=== PATIENT | male | born 1955 | race Caucasian/White ===

== ENCOUNTER 2024-12-21 05:52 | Emergency (ER) | payer MEDICARE, SELFPAY ==
[2024-12-21] VITALS (9 sets, daily range): BP systolic 121–208; BP diastolic 72–125; PULSE 85–144; RESP 18–26; TEMP 36.4–37.1; O2SAT 96–100; BMI 35.2
--- NOTE | 2024-12-21 | ECG_ITS ---
Test Reason : HYPERTENSION Blood Pressure : */* mmHG Vent. Rate : 140 BPM Atrial Rate : * BPM P-R Int : * ms QRS Dur : 146 ms QT Int : 356 ms P-R-T Axes : * -47 10 degrees QTcB Int : 543 ms Wide QRS tachycardia most liekly SVT/Flutter with aberrancy Right bundle branch block Left anterior fascicular block Bifascicular block Possible Inferior infarct , age undetermined Abnormal ECG No previous ECGs available Referred By: Generic ED Physician Electronically Signed By: JUSTIN HAYDEN MD
--- NOTE | ~2024-12-21 | CT_ITS ---
CLINICAL HISTORY: acute onset dizzines CT angiography head and neck with contrast. 3D Postprocessing. Comparison: None provided Findings: There are bilateral calcific atherosclerotic changes of the carotid bulbs without significant stenosis on the right and with severe stenosis at the origin of the left internal carotid artery. [id number] calcific atherosclerotic changes at the cavernous carotid arteries without significant stenosis. Intracranial arteries are patent. No aneurysm, dissection, hemodynamically significant stenoses, or occlusion. No abnormal intracranial enhancement. The visualized thyroid gland is unremarkable. No cervical mass or fluid collection. Lung apices clear. There is multilevel degenerative disc disease and uncinate joint arthropathy with significant multilevel bilateral neural foraminal narrowing. IMPRESSION: 1. Severe calcific atherosclerotic changes left carotid bulb with severe stenosis at the origin of the left internal carotid artery. Otherwise patent arterial system in the head and neck. 2. Severe multilevel degenerative disc disease with bilateral neural foraminal narrowing at multiple levels. This document has been electronically signed by: Riki Yeh MD on 12/21/2024 07:29:53
--- NOTE | ~2024-12-21 | MR_ITS ---
EXAMINATION: MR BRAIN WITHOUT CONTRAST CLINICAL INFORMATION: Acute onset dizziness. Difficulty walking. COMPARISON: None available. TECHNIQUE: MRI of the brain was obtained using routine sequences without contrast. FINDINGS: No restricted diffusion. No acute intracranial hemorrhage, mass effect, midline shift, hydrocephalus or herniation. Bilateral multifocal patchy and punctate deep periventricular white matter hyperintense T2 FLAIR signal involving antrum semiovale and adams radiata. Posterior cranial fossa contents demonstrated no acute hemorrhage or mass effect. Focal susceptibility signal, superior left cerebellum Flow-void signal within the main cerebral vessels is normal. Mild prominence of the extra-axial CSF spaces cerebral sulci and ventricles. Small cavum septum pellucidum, congenital. Sellar/suprasellar region is normal. Craniocervical junction demonstrates normal position of the cerebellar tonsils. MR/MR head/brain wo con IMPRESSION: No acute stroke/nonhemorrhagic ischemia or acute intracranial hemorrhage. White matter T2 FLAIR signal which could be related to small vessel occlusive disease in the correct clinical settings. 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 Electronically signed by: Lakhwinder Mercado MD 12/21/2024 08:36 AM EDT
--- NOTE | ~2024-12-21 | XR_ITS ---
EXAMINATION: XR CHEST CLINICAL INFORMATION: sob COMPARISON: None available. TECHNIQUE: Frontal view of the chest was obtained. FINDINGS: No hyperinflation. No consolidation, pleural effusion or pneumothorax. Cardiomediastinal silhouette size is normal. Osseous structures are intact. Patient's large body habitus. XR/XR chest 1V IMPRESSION: No acute airspace disease. Negative x-ray. Electronically signed by: Lakhwinder Mercado MD 12/21/2024 08:47 AM EDT
--- NOTE | ~2024-12-21 | CT_ITS ---
CLINICAL HISTORY: acute onset dizziness CT head without contrast Comparison: None provided Findings: No intra-axial mass, midline shift, hydrocephalus, or acute hemorrhage. No significant atrophy-like change or white matter disease. The visualized paranasal sinuses and mastoid air cells are normal. The orbits are within normal limits. There is no acute fracture. IMPRESSION: 1. No acute intracranial findings. This document has been electronically signed by: Riki Yeh MD on 12/21/2024 07:23:45
--- NOTE | 2024-12-21 06:18 | ED.GENADULT ---
HPI - General Adult General Chief complaint: General Medical Stated complaint: HTN DIZZINESS Time Seen by Provider: 12/21/24 05:57 Source: patient, EMS and old records reviewed Mode of arrival: EMS Limitations: no limitations History of Present Illness ED Provider: SOURAV ESTEVEZ narrative: 69 yo male with PMH of DM on lantus daily, CAD s/p 2 stents over 10 years ago on aspirin, HTN on amlodipine he notes no recent travel or procedures he felt well up until 5am when he was sitting on the couch. He states he felt very weak, short of breath, he states he felt out of body not himself and had a hard time walking. He cannot quantify what his dizziness is like just keeps saying he is out of his body. He denies any recent illness/new meds/drug use/ETOH use. He denies numbness, weakness, no vomiting, no diarrhea. He takes all of his medications. 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 He notes symptoms started at 5am or 530a. On arrival he was at 140s for HR, rectal temp afebrile. MD complaint: fatigue, malaise, dyspnea Onset (ago): hour(s) (5am today) Radiation: non-radiation Severity: moderate Relieving factors: none Exacerbating factors: movement Associated symptoms: loss of appetite, malaise, shortness of breath and weakness Treatments prior to arrival: none Related Data Allergies Allergy/AdvReac Type Severity Reaction Status Date / Time No Known Allergies Allergy Verified 12/21/24 06:07 Review of Systems Review of Systems: Constitutional : No Fever, No Chills ENT/Mouth : No sore throat, No Rhinorrhea Eyes: No Eye Pain, No Swelling, No Redness Cardiovascular : No Chest Pain, pos SOB Respiratory : No Cough, No Sputum Gastrointestinal : No Nausea, No Vomiting, No Diarrhea, No abdominal Pain Genitourinary : No Dysuria, No Urinary Frequency, No Hematuria, Musculoskeletal : No joint pain, No Myalgias, No Joint Swelling Skin : No Skin Lesions, No rash Neuro : No Weakness, No Numbness, pos Dizziness, no Headache All other systems reviewed and are negative PMFSH Past Medical History Attestation statement: The following information was validated with the patient. Source: old records reviewed Medical History (Updated 12/21/24 @ 14:18 by Krystle Lugo DO) Diabetes CAD (coronary artery disease) HTN (hypertension) Social History Social History (Updated 12/21/24 @ 06:23 by Krystle Lugo DO) Patient Tobacco Use Status: Never used Tobacco Advance Directives: No Advance Directives Information Provided: Yes Do you have a plan to hurt others: No Plan Physical Exam ED Vital Signs: Vital Signs - 24 hr 12/21/24 06:04 12/21/24 06:12 12/21/24 06:24 Temperature 98.7 F 97.9 F 98.7 F Pulse Rate 144 H 142 H Respiratory Rate 22 H 21 H Blood Pressure 159/101 H 159/101 H Pulse Oximetry 97 100 Oxygen Delivery Method Room Air Room Air 12/21/24 08:32 12/21/24 10:09 12/21/24 11:56 Temperature 97.9 F 97.8 F Pulse Rate 92 93 95 Respiratory Rate 26 H 23 H 24 H Blood Pressure 121/79 129/81 123/72 Pulse Oximetry 97 97 97 Oxygen Delivery Method Room Air Room Air Room Air BMI result Body Mass Index 35.2 Appearance: Alert. Oriented X3. No acute distress. Eyes: Pupils equal, round and reactive to light. ENT: Pharynx normal. Neck: Normal inspection. Neck supple. CVS: tachycardic heart rate and rhythm. Pulses normal. Respiratory: No respiratory distress. Breath sounds normal. Abdomen: Soft and nontender. Skin: Skin warm and dry. Normal skin color. Normal skin turgor. Extremities: No lower extremity edema. Neuro: Oriented X 3. No motor deficit. No sensory deficit. CN2-12 intact. no drift NIH Stroke Scale Internal: Initial- Upon Arrival Level of Consciousness: Alert Level of Consciousness Questions: Answers both questions correctly Level of Consciousness Commands: Performs both tasks correctly Best Gaze: Normal Visual: No visual loss Facial Palsy: Normal Motor Arm (Right): No drift Motor Arm (Left): No drift Motor Leg (Right): No drift Motor Leg (Left): No drift Limb Ataxia: Absent Sensory: Normal Best Language: No aphasia Dysarthia: Normal Extinction and Inattention: No abnormality Score: 0 Course Course Course Narrative: 629am converted to NSR and sinus tach - 90s/100s he states he still feels off but cannot quantify if it is dizziness. Will obtain stroke imaging though given his NIH I would not give TNK. 658am patient agreed to try to get up and he had a neg Romberg, he was able to turn and pivot without falling but when we tried to walk he stated he was too short of breath and was almost hyperventilating as well as he felt he was going to pass out. His HR was 112 during the event and his BP sitting was 160/101 he was not orthostatic. I am still going to hold TNK as his symptoms are very vague and not consistent with stroke. I am going to attempt to get a MRI of the brain to assess. repeat calls to MRI after placement of order to confirm time, will call again 734am. SOURAV patient resting no labored breathing, I went into the room and he started to have again loud long breathing - I am going to try oral ativan and repeat his troponin Reevaluation(s) Reevaluation #1: 1218pm feels better, ambulated on his own to bathroom Medications Administered Discontinued Medications Generic Name Dose Route Start Last Admin Trade Name Farrukh PRN Reason Stop Dose Admin Iohexol 75 ml 12/21/24 06:58 12/21/24 06:58 Iohexol 350 Mg/Ml 100 Ml Infus..Btl IV 12/21/24 06:59 75 ml ONCE ONE Administration Lorazepam 0.5 mg 12/21/24 08:52 12/21/24 09:09 Lorazepam 0.5 Mg Tablet PO 12/21/24 08:53 0.5 mg ONCE ONE Administration Medical Decision Making Medical Decision Making [facility] Narrative: 69 yo male with PMH of DM on lantus daily, CAD s/p 2 stents over 10 years ago on aspirin, HTN on amlodipine initially here with HR in 140s the spontaneously down to 90s/100s. He has no focal deficits but I cannot get him up to to walk. He is not reporting the room spinning and is not vomiting - he has no other neuro symptoms. I initially thought his symptoms were due to tachycardia and possible underlying flutter though he broke on his own. I am going to obtain labs, lytes, TSH, and give his vague complaint of out of body and not himself I will get stroke protocol - I think based off his symptoms I will not given TNK as his NIH is 0 and he is not reporting the typical n/v room spinning. He will need repeat labs, repeat troponin, will also get TSH and ddimer given the tachycardia and dyspnea. Differential Diagnosis Differential Diagnoses: The differential diagnosis associated with the presentation includes arrhythmia, lyte abnormality, atypical ACS, VTE low prob, posterior neuro event Admission/Observation Consideration of admission/observation: Escalation of care including admission/observation considered trop not ischemic x 3, EKG unchanged, no chest pain. he continues to perseverate that he felt so sick so quickly he has no stroke he is up to the bathroom at this time I do think he can be discharged home no hypoxia neg ddimer for low prob VTE sig work up in ED - his rate was regular RBBB hard to say if aflutter but he corrected on his own - no chest pain to suggest any other issue could have been SVT that resolved he has not had any events on tele at this time will DC home to PCP with holter monitor Consult Healthcare Provider Management of the patient was discussed with: Welfare Case Worker discussed carotid findings with vasc aspirin/statin follow up outpatient Lab Data MDM Lab Attestation statement: I reviewed the patient's lab results. 12/21/24 06:30 12/21/24 06:30 Labs: Lab Results 12/21/24 12/21/24 12/21/24 Range/Units 06:30 06:31 09:32 WBC 6.0 (4.8-10.8) X10*3/uL RBC 4.04 L (4.60-5.80) X10*6/uL Hgb 12.4 L (14.0-18.0) g/dl Hct 35.6 L (42.0-52.0) % MCV 88.1 (80.0-98.0) fL MCH 30.7 (27.0-33.0) pg MCHC 34.8 (31.0-36.0) g/dl RDW 13.3 (11.0-16.0) % Plt Count 226 (160-400) X10*3/uL MPV 10.1 (9.4-12.4) fL Immature Gran % (Auto) 0.7 H (0.0-0.4) % Neut % (Auto) 53.0 (45-73) % Lymph % (Auto) 34.5 (20-40) % Levy % (Auto) 8.0 (2-11) % Eos % (Auto) 2.8 (0-4) % Baso % (Auto) 1.0 (0-2) % Lymph # (Auto) 2.1 (1.2-4.9) X10*3/uL Levy # (Auto) 0.5 (0.1-1.2) X10*3/uL Eos # (Auto) 0.2 (0.0-0.4) X10*3/uL Baso # (Auto) 0.1 (0.0-0.2) X10*3/uL Abs Immat Gran (auto) 0.04 H (0.00-0.03) X10*3/uL Absolute Neuts (auto) 3.2 (2.0-8.3) x10*3/uL Absolute Nucleated RBC 0.000 (0.0-0.012) X10*3/uL Nucleated RBC % (auto) 0.0 (0.0-0.2) /100WBC D-Dimer High Sensitivty < 150 NG/ML Sodium 139 (135-145) mmol/L Potassium 3.8 (3.3-5.1) mmol/L Chloride 106 (96-108) mmol/L Carbon Dioxide 21 L (22-29) mmol/L Anion Gap 16 (12-20) BUN 18 H (9-16) mg/dL Creatinine 1.28 (0.5-1.4) mg/dL Estim Creat Clear Calc 63.9 Estimated GFR 56 POC Glucose 234 H (60-115) mg/dL Random Glucose 240 H (60-115) mg/dL Calcium 9.1 (8.4-10.2) mg/dL Magnesium 2.1 (1.6-2.6) mg/dL Total Bilirubin 0.4 (0.0-1.0) mg/dL AST 38 H (5-37) U/L ALT 31 (0-40) U/L Alkaline Phosphatase 91 (39-117) U/L Troponin I High Sens < 2.7 8.0 D (<3.5-35.0) ng/L NT-Pro-B Natriuret Pep 28.5 (<300) pg/mL Total Protein 7.1 (6.5-8.0) g/dL Albumin 4.2 (3.5-5.0) g/dL TSH 2.67 (0.32-4.0) uIU/mL Urine Color Urine Appearance Urine pH (5.0-9.0) Ur Specific [place] (1.005-1.025) Urine Protein (Neg-Trace) mg/dL Urine Glucose (UA) (Negative) mg/dL Urine Ketones (Negative) mg/dL Urine Blood (Negative) Urine Nitrite (Negative) Ur Leukocyte Esterase (Negative) Influenza Type A (PCR) NEGATIVE (Negative) Influenza Type B (PCR) NEGATIVE (Negative) RSV RNA Qual (PCR) NEGATIVE (Negative) SARS-CoV-2 RNA (RT-PCR) NEGATIVE (Negative) 12/21/24 Range/Units 12:09 WBC (4.8-10.8) X10*3/uL RBC (4.60-5.80) X10*6/uL Hgb (14.0-18.0) g/dl Hct (42.0-52.0) % MCV (80.0-98.0) fL MCH (27.0-33.0) pg MCHC (31.0-36.0) g/dl RDW (11.0-16.0) % Plt Count (160-400) X10*3/uL MPV (9.4-12.4) fL Immature Gran % (Auto) (0.0-0.4) % Neut % (Auto) (45-73) % Lymph % (Auto) (20-40) % Levy % (Auto) (2-11) % Eos % (Auto) (0-4) % Baso % (Auto) (0-2) % Lymph # (Auto) (1.2-4.9) X10*3/uL Levy # (Auto) (0.1-1.2) X10*3/uL Eos # (Auto) (0.0-0.4) X10*3/uL Baso # (Auto) (0.0-0.2) X10*3/uL Abs Immat Gran (auto) (0.00-0.03) X10*3/uL Absolute Neuts (auto) (2.0-8.3) x10*3/uL Absolute Nucleated RBC (0.0-0.012) X10*3/uL Nucleated RBC % (auto) (0.0-0.2) /100WBC D-Dimer High Sensitivty NG/ML Sodium (135-145) mmol/L Potassium (3.3-5.1) mmol/L Chloride (96-108) mmol/L Carbon Dioxide (22-29) mmol/L Anion Gap (12-20) BUN (9-16) mg/dL Creatinine (0.5-1.4) mg/dL Estim Creat Clear Calc Estimated GFR POC Glucose (60-115) mg/dL Random Glucose (60-115) mg/dL Calcium (8.4-10.2) mg/dL Magnesium (1.6-2.6) mg/dL Total Bilirubin (0.0-1.0) mg/dL AST (5-37) U/L ALT (0-40) U/L Alkaline Phosphatase (39-117) U/L Troponin I High Sens 16.9 D (<3.5-35.0) ng/L NT-Pro-B Natriuret Pep (<300) pg/mL Total Protein (6.5-8.0) g/dL Albumin (3.5-5.0) g/dL TSH (0.32-4.0) uIU/mL Urine Color Yellow Urine Appearance Clear Urine pH 6.0 (5.0-9.0) Ur Specific [place] >= 1.030 H (1.005-1.025) Urine Protein Trace (Neg-Trace) mg/dL Urine Glucose (UA) 250 H (Negative) mg/dL Urine Ketones Trace (Negative) mg/dL Urine Blood Negative (Negative) Urine Nitrite Negative (Negative) Ur Leukocyte Esterase Negative (Negative) Influenza Type A (PCR) (Negative) Influenza Type B (PCR) (Negative) RSV RNA Qual (PCR) (Negative) SARS-CoV-2 RNA (RT-PCR) (Negative) Independent Interpretation I performed an independent interpretation of an: EKG, Plain X-Ray, CT Scan (no acute findings) and MRI (no acute stroke) Interpretation: Rate: 140 Rhythm: regular wide tachycardia ?SVT [place]: left RBBB ST T wave : inverted t waves anterior lateral leads, no VERONIKA qTC: 543 prior studies: hx of RBBB The study has been interpreted contemporaneously by me. . cards interpretation Wide QRS tachycardia most liekly SVT/Flutter with aberrancy Right bundle branch block Left anterior fascicular block Bifascicular block Possible Inferior infarct , age undetermined Abnormal ECG No previous ECGs available EKG #2 Rate: 97 Rhythm: NSR [place]: left Normal P waves. Normal KRISTIAN. RBBB ST T wave : no Veronika, old inf infarct, inverted t waves in anterior leads in RBBB pattern qTC: 510 prior studies: slower rate The study has been interpreted contemporaneously by me. . Radiology Impression Discussion of test interpretation with radiology: I have reviewed the radiologist's reading. Independent Historian Clinical information obtained from an independent historian. History obtained from or confirmed by: EMS External Record Review External record reviewed: Outpatient record (access [facility] records) Discharge Plan Discharge Clinical Impression: Dizziness, Tachycardia Patient Disposition: Home, Self-Care Instructions: Dizziness (ED), Tachycardia (ED) Additional Instructions: labs, CT scans and MRI of brain show no stroke repeat labs stable you did have an elevated heart rate on arrival that resolved I would take a baby aspirin daily 81mg please follow up with your doctor for outpatient holter monitor to monitor for any heart rate changes you have carotid stenosis which needs close follow up with vascular surgery - their number is listed below return for any worsening symptoms or concerns Referrals: [facility] Vascular Services [Provider Group, Vascular Surgery] Referral Note: please call to schedule Stand Alone Forms: Work/School Release Print Language: Portuguese
--- NOTE | 2024-12-21 06:28 | ECG_ITS ---
Test Reason : IRREGULAR HEART RATE Blood Pressure : */* mmHG Vent. Rate : 97 BPM Atrial Rate : 97 BPM P-R Int : 156 ms QRS Dur : 150 ms QT Int : 402 ms P-R-T Axes : 10 -20 -1 degrees QTcB Int : 510 ms Normal sinus rhythm Right bundle branch block Abnormal ECG When compared with ECG of 21-Dec-2024 06:07, Sinus rhythm has replaced Wide QRS tachycardia , svt/flutter with aberrancy Referred By: Krystle Lugo Electronically Signed By: JUSTIN HAYDEN MD
[2024-12-21 06:34] LABS: Glucose, Whole Blood 234 mg/dL (60-115)
[2024-12-21 06:36] LABS: MANUAL DIFF FLAG NO
[2024-12-21 06:42] LABS: Hematocrit 35.6 % (42.0-52.0); Hemoglobin 12.4 g/dl (14.0-18.0); Imm Gran Abs Auto 0.04 X10*3/uL (0.00-0.03); Imm Gran Pct Auto 0.7 % (0.0-0.4); Lymphocytes Absolute Auto 2.1 X10*3/uL (1.2-4.9); Mean Corpuscular HGB Conc 34.8 g/dl (31.0-36.0); Mean Corpuscular Hemoglobin 30.7 pg (27.0-33.0); Mean Corpuscular Volume 88.1 fL (80.0-98.0); NRBC Abs Auto 0.000 X10*3/uL (0.0-0.012); NRBC Pct Auto 0.0 /100WBC (0.0-0.2); Platelet Count 226 X10*3/uL (160-400); Red Blood Count 4.04 X10*6/uL (4.60-5.80); White Blood Count 6.0 X10*3/uL (4.8-10.8)
[2024-12-21 06:48] LABS: D Dimer High Sensitivity < 150 NG/ML
[2024-12-21 06:56] LABS: NT Pro B Type Natriuretic Pept 28.5 pg/mL (<300)
[2024-12-21 06:57] LABS: Alanine Aminotransferase 31 U/L (0-40); Albumin Level 4.2 g/dL (3.5-5.0); Alkaline Phosphatase 91 U/L (39-117); Anion Gap 16 (12-20); Aspartate Amino Transferase 38 U/L (5-37); Blood Urea Nitrogen 18 mg/dL (9-16); Calcium 9.1 mg/dL (8.4-10.2); Carbon Dioxide 21 mmol/L (22-29); Chloride 106 mmol/L (96-108); Creatinine Clr Calc Pharmacy 63.9; Estimated Glomerular Filt Rate 56; Magnesium 2.1 mg/dL (1.6-2.6); Potassium 3.8 mmol/L (3.3-5.1); Sodium 139 mmol/L (135-145); Total Protein 7.1 g/dL (6.5-8.0)
[2024-12-21] MEDS: iohexoL 350 MG/ML 100 ML INFUS..BTL 75 ML IV (06:58)
[2024-12-21 07:07] LABS: Troponin-I High Sensitivity < 2.7 ng/L (<3.5-35.0)
[2024-12-21 07:19] LABS: Resp Syncy Virus RNA Qual PCR NEGATIVE (Negative); SARS COV2 PCR INHOUSE NEGATIVE (Negative)
--- OUTSIDE RECORDS SUMMARY | 2024-12-21 07:28 | XMS_ITS | Clinical Summary ---
Author Organization [facility] Address [address] [place] [address] Care Team Providers Care Medical Support Assistant Name Role Phone Unavailable Primary Care Provider Unavailabl e Social History Tobacco Use Types Packs/Day Years Used Date Smoking Tobacco: Never Assessed Sex and Gender Information Value Date Recorded Sex Assigned at Not on file Legal Sex Male 9:20 PM EST Gender Identity Not on file Sexual Orientation Not on file Plan of Treatment Health Maintenance Due Date Last Done Comments DTaP,Tdap,and Td Vaccines (1 - Tdap) 11/04/1974 Pneumococcal Vaccine: 50+ Ye ars (1 of 1 - PCV) 11/04/2005 Zoster Vaccines (1 of 2) 11/04/2005 Depression Screening 03/01/2024 COVID-19 Vaccine (1 - 2023-2 5 season) 2024 Influenza Vaccine (#1) 2024 RSV Immunization Adult Patie nts (1 - 1-dose 75+ series) 11/04/2030 HIB Vaccines Aged Out No longer eligi ble based on patient's age to complete this topic HPV Vaccines Aged Out No longer eligi ble based on patient's age to complete this topic Hepatitis A Vaccines Aged Out No long er eligible based on patient's age to complete this topic Hepatitis B Vaccines Aged Out No long er eligible based on patient's age to complete this topic IPV Vaccines Aged Out No longer eligi ble based on patient's age to complete this topic MMR Vaccines Aged Out No longer eligi ble based on patient's age to complete this topic Meningococcal ACWY Vaccine Aged Out N o longer eligible based on patient's age to complete this topic Meningococcal B Vaccine Aged Out No l onger eligible based on patient's age to complete this topic RSV Immunization Patients Un leyda 20 months Aged Out No longer eligible b ased on patient's age to complete this topic Varicella Vaccines Aged Out No longer eligible based on patient's age to complete this topic
--- OUTSIDE RECORDS SUMMARY | 2024-12-21 07:28 | XMS_ITS | Encounter Summary ---
Author Organization [facility] Address [address] [place] [phone] Phone Care Team Providers Care Laborer Steel Handling Name Role Phone Unavailable Primary Care Provider Unavailabl e Encounter Details Date Type Department Care Team (Latest Contact Info) Description 05/11/2022 Transcribe Orders Virtual Department [address] [place] [address] Maria Victoria Ga, BAKER PIE [address] [place] [address] Testicular mass (Primary Dx) Social History Tobacco Use Types Packs/Day Years Used Date Smoking Tobacco: Never Assessed Sex and Gender Information Value Date Recorded Sex Assigned at Not on file Legal Sex Male 9:54 PM EDT Gender Identity Not on file Sexual Orientation Not on file documented as of this encounter Plan of Treatment Not on file documented as of this encounter Visit Diagnoses Diagnosis Testicular mass- Primary Other specified disorder of male genital organs documented in this encounter Additional Source Comments The information contained in this document represents components of the legal health record. It is not the complete legal health record.[facility]
--- OUTSIDE RECORDS SUMMARY | 2024-12-21 07:28 | XMS_ITS | Encounter Summary ---
Author Organization [facility] [employer] Address [address] [place] [address] Care Team Providers Care Metal Engraver Name Role Phone Maria Victoria Ga [employer] Primary Care Provider [phone] Jaimie Erickson OD Unavailable Gail Pruitt RD Unavailable [phone] Maria Victoria Ga [employer] Primary Care Provider [phone] Coleen Ling DO Primary Care Provider [phone] Encounter Details Date Type Department Care Team (Late st Contact Info) Description 04/21/2022 Abstract Jay [facility] [address] [place] [address] Maria Victoria Ga [facility] [address] [place] [address] Dietary counseling; Exercise counseling Social History Tobacco Use Types Packs/Day Years Used Date Smoking Tobacco: Former Cigarettes Alcohol Use Standard Drinks/Week Comments Not Currently 0 (1 standard drink = 0.6 oz pur e alcohol) Depression Answer Date Recorded Patient Health Questionnaire-2 Score 0 03/18/2022 Sex and Gender Information Value Date Recorded Sex Assigned at Male 02/09/2022 11:57 AM EST Legal Sex Male 5:36 PM EDT Gender Identity Male 02/09/2022 11:57 AM EST Sexual Orientation Straight 04/07/2022 9: 03 AM EST COVID-19 Exposure Response Date Recorded In the last 10 days, have yo u been in contact with someone who was confirmed or suspected to have Coronavirus/COVID-19? No / Unsure 04/22/2022 8:12 AM EST documented as of this encounter Plan of Treatment Not on file documented as of this encounter Visit Diagnoses Diagnosis Dietary counseling Dietary surveillance and counseling Exercise counseling documented in this encounter Care Teams Metal Engraver Relationship Specialty Start Date End Date Maria Victoria Ga FNP [address] [place] [address] PCP - General Family Medicine 04/08/22 11/15/23 Maria Victoria Ga FNP [address] [place] [address] PCP - General Family Medicine 11/16/23 12/17/24 Coleen Ling DO [address] [place] [address] PCP - General Ironer Machine 12/18/24 Jaimie Erickson OD [address] [place] [address] Optometry 04/08/[address] [place] [address] Dietitian Dietitian 04/08/22 documented as of this encounter
--- OUTSIDE RECORDS SUMMARY | 2024-12-21 07:28 | XMS_ITS | Clinical Summary ---
Author Organization [facility] Address [address] [id number] Phone Care Team Providers Care Per Diem Registered Nurse Name Role Phone Unavailable Primary Care Provider Unavailabl e Social History Tobacco Use Types Packs/Day Years Used Date Smoking Tobacco: Never Assessed Sex and Gender Information Value Date Recorded Sex Assigned at Not on file Legal Sex Male 9:54 PM EDT Gender Identity Not on file Sexual Orientation Not on file Plan of Treatment Not on file Medical Devices Not on file Additional Source Comments The information contained in this document represents components of the legal health record. It is not the complete legal health record.[facility]
--- OUTSIDE RECORDS SUMMARY | 2024-12-21 07:28 | XMS_ITS | Clinical Summary ---
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 Active aspirin 81 MG EC tablet Take 81 mg by mouth in the morning. Active omega-3 acid ethyl esters (Lovaza) 1 g capsule Take 1 g by mouth in the morning. Active Alcohol Sheets (Alcoh-Wipe) sheetIndications:T ype 2 diabetes mellitus without complication, without long-term current use of insulin ([facility]) Test daily before all meals/snacks and once before bedtime. 1 each 03/19/19 23 Active Additional Information Patient not taking.Reported on 03/08/2024 glucose 4 g chewable tabletIndications: Type 2 diabetes mellitus without complication, without long-term current use of insulin ([facility]) Chew 4 tablets (16 g) if needed for low blood sugar. 50 tablet 03/19/19 23 Active metFORMIN (Glucophage) 1000 MG tabletIndications: Type 2 diabetes mellitus without complication, without long-term current use of insulin ([facility]) TAKE 1 TABLET BY MOUTH WITH BREAKFAST AND WITH EVENING MEAL 180 tablet 3 09/14/19 24 Active amLODIPine (Norvasc) 5 MG tabletIndications: Hypertension, unspecified type,Primary hypertension Take 1 tablet (5 mg) by mouth Once per day. 90 tablet 3 05/09/19 25 026 Active atorvastatin (Lipitor) 80 MG tabletIndications: Mixed hyperlipidemia TAKE 1 TABLET BY MOUTH IN THE MORNING 90 tablet 06/22/19 25 Active lisinopril 20 MG tabletIndications: Primary hypertension TAKE 1 TABLET BY MOUTH IN THE MORNING 90 tablet 06/22/19 25 Active minocycline 100 MG capsuleIndications :Acne vulgaris Take 1 capsule (100 mg) by mouth Once per day. 90 capsule 09/27/19 25 Active insulin glargine (Lantus SoloStar) 100 UNIT/ML penIndications:Typ e 2 diabetes mellitus without complication, without long-term current use of insulin (HCC) Inject 50 Units under the skin at bedtime. 45 mL 3 10/29/19 25 026 Active Active Problems Problem Noted Date Diagnosed Date Dorsalgia of lumbar region 11/16/2023 Overview (11/16/2023): Ongoing pain x 6 months. Up around, doing yardwork or when up and around. Burning sensation in lower back. Discussed options - will start NSAID and muscle relaxant. Reviewed medications, administration, and potential side effects. Do not drive while taking Flexeril. Take Meloxicam with food. Do not take with any other NSAIDs such as Ibuprofen, Advil, Aleve, etc. If S/S fail to improve or worsen, would consider MRI and/or referral to orthopedics. Calcification of aorta 05/19/2023 Overview (05/19/2023): 04/30/23 Severe atherosclerotic aortic calcification findings on CT. Referral placed to Cardiology. Renal cyst 01/07/2023 Overview (07/21/2023): 06/16/[address] showed incidental right renal cyst 5.5cm, and left renal cyst 3cm. Needs 6 month follow up. 04/30/[address] IMPRESSION: 1. Previously identified hyperdense subcentimeter left renal lesion is likely a cyst however too small for definitive characterization. Ultrasound should be considered to see if this cyst is identified and could be followed this way. 2. Other cysts and probable cysts as noted. 3. Severe atherosclerotic aortic calcification. Follow up renal US ordered; scheduled 06/17/23 [facility] Paul. Bilat renal cysts. No significant change from recent CT. Non obstructing renal caliculi. 06/30/23: Per [facility] renal consult - likely polycystic kidney disease, monitor Urine Micro. No routine imaging needed. Left ventricular hypertrophy 06/24/2022 Overview (06/24/2022): Echo 04/2022. LVH, EF 55-60%. Unchanged from 2018. Assessment & Plan (06/24/2022 5:12 PM EDT): Will continue to monitor. Kidney stones 06/24/2022 Overview (06/24/2022): Admit 05/2022 for cystoscopy and lithotripsy. Symptoms improved significantly. Will continue to monitor. Hospital discharge follow-up 06/24/2022 Assessment & Plan (06/24/2022 5:14 PM EDT): Recent admit to [facility] for kidney stones requiring lithotripsy and cystoscopy. All available records reviewed. Denies any current symptoms or issues. Other specified diabetes anjana litus with unspecified complications 04/24/2022 Acne vulgaris 04/24/2022 Overview (04/07/2023): Taking Minocycline with good effect. Denies any medication side effects. Will continue current treatment plan at this time. Assessment & Plan (04/24/2022 9:03 AM EST): Concentrated on chin/jawline. Pt reports was on Minocycline in the past with very good effect - requesting restart. Discussed medication, risks/benefits/potential side effects. Pt verbalizes understanding and requesting restart of medication. Will restart at this time. Testicular mass 04/24/2022 Overview (06/24/2022): 04/22/22 Pt discovered pea sized mass on right testicle in shower. Hx of right hydrocele. Assessment & Plan (06/24/2022 5:05 PM EDT): Did not get scrotum ultrasound - is afraid of copay cost. Is self monitoring - will notify provider of any changes. Did advise of risks associated with delayed diagnosis including increased morbidity and mortality. Assessment & Plan (04/24/2022 8:47 AM EST): New mass, as above. Will order ultrasound. NSTEMI (non-ST elevated myocardial infarction) 0 03/13/2022 Primary hypertension 03/13/2022 Overview (11/16/2023): BP Readings from Last 4 Encounters: 11/16/23 112/80 06/30/23 111/73 05/12/23 140/80 01/06/23 99/64 BP at goal. Lisinopril 20 mg daily. Amlodipine 5mg daily. Pt reports tolerating meds well. Lifestyle: Continues to work on diet for weight loss, lost ~15 lbs in past year. Would like to lose 10-15 lb more. Has seen form stripper in the past, is open to follow up for ongoing advice. Feels weight loss is at a plateau. Needs to reschedule with Gail. Assessment & Plan (04/24/2022 8:44 AM EST): BP below goal today. Discussed treatment options - will decrease Amlodipine from 10mg to 5mg. Will have BP recheck in 4 weeks at follow up. Continue lifestyle changes, low salt diet. Moderate obesity 03/13/2022 Overview (04/07/2023): Diet and exercise counseling done 09/30/22. Meeting with nutrition. Has been working hard at lifestyle modifications - low salt, low carb, no sugar. Has been struggling to lose weight lately. Discussed options - would like referral to Weight Management. History of non-ST elevation myocardial infarctio n (NSTEMI) 03/13/2022 Pancreatic lesion 03/13/2022 Type 2 diabetes mellitus wit hout complication, with long-term current use of insulin 02/03/2022 Overview (11/16/2023): 2018 - A1c 7.0% No medical care until 12/202102/03/22 A1c 12.0% 03/19/22 A1c 12.1% on Metformin 1000mg BID. 04/22/22 A1c 10.6% On Metformin 1000mg BID and Lantus 30 units. 06/24/22 A1c 7.7% On Metformin 1000mg BID and Lantus 40 units. 09/30/22 A1c 7.4% On Metformin 1000mg BID and Lantus 40 units. 01/06/23 A1c 6.8% On Metformin 1000mg BID and Lantus 50 units. 06/30/23 A1c 7.1% On Metformin 1000mg BID and Labtus 50 units daily. Lab Results Component Value Date HGBA1C 7.7 (A) 11/16/2023 On Metformin 1000mg BID and Lantus 50units at night. On ACEI, statin, and ASA81. Eye exam: at [facility], 12/2022. Dental: 1 year ago - having issues with insurance. Foot exam: 01/06/23 with sensory loss bilaterally in multiple sites, generally over areas of dry skin. 06/2023: Has been working on foot care and repeated foot exam today with 5/5 sites sensed today. Working with nutrition. Denies any episodes of hypoglycemia. A1c slightly above goal. Reinforced lifestyle modifications. Will continue current treatment plan at this time. Assessment & Plan (06/24/2022 5:08 PM EDT): Continues to work with nutrition. A1c significantly improved. Reinforced lifestyle modifications. Will continue current treatment plan. Assessment & Plan (04/24/2022 9:01 AM EST): Blood sugars near goal, continuing to titrate up on Lantus. Working with nutrition, making positive lifestyle changes. A1c improved from last month. Will continue to monitor. Assessment & Plan (03/19/2022 8:40 AM EST): Discussed treatment options - Mr. Armstrong is agreeable to start insulin at this time. Plan to start Lantus 21 units (0.2units/kg) at night. Check fasting blood sugar every AM. Goal between 80-130. Keep log of blood sugars, call next week with blood sugar log. Has never check blood sugars or given insulin before - bring all supplies to clinic and meet with nurse for diabetic teaching Wednesday. Assessment & Plan (02/03/2022 11:04 AM EST): Stopped all meds years ago. Was on Metformin 500mg daily. Will restart and uptitrate to Metformin 1000mg BID. Elevated brain natriuretic peptide (BNP) level 1 04/06/2021 Overview (01/07/2023): 12/2021 Pro BNP elevated at 421. 03/19/2022 Pro BNP WNL at 81. Echo done 04/02/22 - LV wall thickness mildly increased. Otherwise normal with EF 55-60%. No significant change from echo done in 2018. Will continue to monitor. Assessment & Plan (02/03/2022 11:06 AM EST): Pro BNP 421. Will order Echo. Mixed hyperlipidemia 02/03/2022 Overview (04/07/2023): Lipid panel 09/30/22 - improved from previous. Cholesterol, Total (<200) MG/DL 151 141 Triglyceride (mg/dL) in Serum/Plasma (<150) MG/DL 217 High 545 High HDL Cholesterol (>39) MG/DL 40 33 Low 31 Abnormal R LDL Cholesterol, Calculated (0-130) MG/DL 68 Unable to calculate Non HDL Chol. (LDL+VLDL) (<160) MG/DL 111 108 CM Stable on Atorvastatin. Denies any medication side effects. Will continue current treatment plan. Assessment & Plan (03/19/2022 8:57 AM EST): Will repeat Lipid panel, due to last Trig 824, to ensure now at safer level on Atorvastatin. Assessment & Plan (02/03/2022 11:08 AM EST): 2018 - Was on Atorvaststin 80mg daily Malakoff 3 2000mg capsule as directed orally ASA 81mg daily. Off all meds for years. 12/2021 - TC 230, Trig 824. Unable to calc ASCVD Risk. Will restart all above meds. Resolved Problems Problem Noted Date Diagnosed Date Resolved Date Hypertension 02/03/2022 09/30/2022 Overview (06/24/2022): BP Readings from Last 3 Encounters: 06/24/22 120/60 04/22/22 100/62 03/18/22 128/70 Assessment & Plan (06/24/2022 5:03 PM EDT): BP remains at goal. Will continue current treatment plan. Assessment & Plan (03/19/2022 8:34 AM EST): BP at goal today on Amlodipine and Lisinopril. Denies any med side effects. Will continue current treatment plan. Assessment & Plan (02/03/2022 11:05 AM EST): Re-engaged in care after years without medical care 12/2021. Restarted Amlodipine 10mg for BP 156/96. Recheck today BP 150/90. Will start Lisinopril due to DM. Encounters Date Type Department Care Team Description 10/27/2024 Refill [facility] MEDICAL [address] [place] [address] Parul Mandujano MD Type 2 diabetes mellitus without complication, without long-term current use of insulin ([facility]) (Primary Dx) 09/26/[address] [address] Parul Mandujano MD Type 2 diabetes mellitus without complication, without long-term current use of insulin ([facility]) 09/26/[address] [address] Iris Santos MD Acne vulgaris from Last 3 Months Immunizations Immunization Administration Dates Next Due Influenza Injectable Quadriv alant Preservative Free IIV4 MDCK 01/06/2023 Influenza injectable quadrivalent preservative f ree 12/17/2021 Jose Carlos SARS-CoV-2 Vaccination 10/11/2020 MMR 10/17/1997,08/29/1997 TD (adult), 2 Lf tetanus tox oid, preservative free, adsorbed 06/30/2007,08/29/1997 Tdap 01/15/2014 Social History Tobacco Use Types Packs/Day Years Used Date Smoking Tobacco: Former Cigarettes Q uit: 01/25/1978 Passive Smoke Exposure: Past Smokeless Tobacco: Former Quit: 03/2004 Tobacco Cessation:Counseling Given: Not Answered Alcohol Use Standard Drinks/Week Comments Not Currently 0 (1 standard drink = 0.6 oz pur e alcohol) Alcohol Answer Date Recorded How often do you have a drink containing alcohol ? 0 03/08/2024 Average Number of Drinks Not on file 025 Frequency of Binge Drinking Not on file 09/2024 Housing Stability Answer Date Recorded What is your housing situation today? I have rocael nilsa 03/08/[address] you li ve. Do you have problems with any of the following? None of the above 03/08/2024 Food Insecurity Answer Date Recorded Within the past 12 months, y ou worried that your food would run out before you got money to buy more: Never True 03/08/2024 Within the past 12 months,th e food you bought just didn't last and you didn't have enough money to get more: Never True 09/2024 Transportation Answer Date Recorded In the past 12 months, has l ack of transportation kept you from medical appts, meetings, work or from getting things needed for daily living? No 03/08/2024 Intimate Partner Violence Answer Date R ecorded Within the last year, have y ou been afraid of your partner or ex-partner? 2 06/30/2023 Within the last year, have y ou been humiliated or emotionally abused in other ways by your partner or ex-partner? 2 Within the last year, have y ou been kicked, hit, slapped, or otherwise physically hurt by your partner or ex-partner? 2 06/30/2023 Within the last year, have y ou been raped or forced to have any kind of sexual activity by your partner or ex-partner? 2 06/30/2023 Utilities Answer Date Recorded In the past 12 months, has t he electric, gas, oil or water company threatened to shut off services in your home? No 03/08/2024 Depression Answer Date Recorded Patient Health Questionnaire-2 Score 0 01/06/2023 Internet Access Answer Date Recorded Internet Access Q1 Yes 03/08/2024 Internet Access Q2 Not on file 03/08/2024 Education Answer Date Recorded What is the highest level of school you have completed or the highest degree you have received? Some college, no degree 06/30/2023 Sex and Gender Information Value Date Recorded Sex Assigned at Male 02/09/2022 11:57 AM EST Legal Sex Male 5:36 PM EDT Gender Identity Male 02/09/2022 11:57 AM EST Sexual Orientation Straight 04/07/2022 9: 03 AM EST Occupation Industry Job Start Date Job End Date [employer] Not on file Not on file Not on file Last Filed Vital Signs Vital Sign Reading Time Taken Comments Blood Pressure 119/73 03/08/2024 10:05 AM EST Pulse 99 03/08/2024 10:05 AM EST Temperature 37.1 C (98.8 F) 03/08/2024 10:05 AM EST Respiratory Rate 16 03/08/2024 10:05 AM EST Oxygen Saturation 98% 11/16/2023 9:23 AM EDT Inhaled Oxygen Concentration - - Weight 108 kg (239 lb) 03/08/2024 10:05 AM EST Height 172.7 cm (5' 8 ) 03/08/2024 10:05 AM EST Body Mass Index 36.34 03/08/2024 10:05 AM EST Plan of Treatment Health Maintenance Due Date Last Done Comments CT Colonography 1955 Colonoscopy 1955 Colorectal Cancer Screening 1955 FIT DNA/Cologuard 1955 FIT 1955 FOBT 1955 Sigmoidoscopy 1955 Pneumococcal Vaccine: 50+ Years (1 of 2 - PCV) 11/04/1974 Zoster Vaccines (1 of 2) 11/04/2005 RSV Patients and Patients Aged 60 years or older (1 - Risk 60-74 years 1-dose series) 2015 Depression Screening 01/07/2024 01/06/2023, 01/07/20 23 Eye Exam 04/16/2024 04/16/2022, 04/01, 04/16/2022, Additional history exists Diabetes: Hemoglobin A1C 05/24/2024 024, 11/16/2023, 06/30/2023, Additional history exists Diabetes: Foot Exam 06/29/2024 06/30/2023, 06/30/2023, 06/30/2023, Additional history exists COVID-19 Vaccine (3 - season) 2024 03/20/2021, 10/11/2020 Influenza Vaccine (#1) 2024 01/06/2023, 2021 Tobacco Screening 02/23/2025 02/24/2024 Diabetes: Urine Protein Screening 02/24/2025 02/25/2024, 09/30/2022 Lipid Panel 02/24/2025 02/25/2024, 08/0 04/2022, 03/19/2022, Additional history exists Alcohol/Substance Use Screening 03/08/2025 03/08/2024 SDOH Screening 03/08/2025 03/08/2024 DTaP/Tdap/Td Vaccines (3 - Td or Tdap) 02/09/2033 02/09/2023, 01/15/2014, 06/30/2007, Additional history exists Hepatitis C Screening Completed 01/20/2022 HIB Vaccines Aged Out No longer eligi [...] patient's age to complete this topic Meningococcal Vaccine Aged Out No kari etta eligible based on patient's age to complete this topic RSV under 20 months Aged Out No longe r eligible based on patient's age to complete this topic Rotavirus Vaccines Aged Out No longer eligible based on patient's age to complete this topic Procedures Procedure Name Priority Date/Time Associated Diagnosis Comments ALBUMIN/CREATININE RATIO, RANDOM URINE Routine 02/25/2024 8:51 AM EST Type 2 diabetes mellitus without complication, with long-term current use of insulin ([facility]) LIPID PANEL, STANDARD Routine 02/25/2024 8:51 AM EST History of non-ST elevation myocardial infarction (NSTEMI) POCT GLYCOSYLATED HEMOGLOBIN (HGB A1C) Routine 02/24/2024 3:33 PM EST Type 2 diabetes mellitus without complication, with long-term current use of insulin (CMS/HCC) SHEMAR HISTORICAL HEPATITIS C ANTIBODY TEST Routine 01/20/2022 12:59 PM EST from Last 3 Months or Most Recently Relevant to Health Maintenance Results * Microalbumin [id number] (02/25/2024 8:51 AM EST) Creatinine, Random Urine 156.9 Not Estab. mg/dL [facility] Albumin, Urine 23.9 Not Estab. ug/mL [facility] 1 Albumin/Creatini ne Ratio 15 0 - 29 mg/g creat [facility] 1 Comment: Normal: 0 - 29 Moderately increased: 30 - 300 Severely increased: >300 Urine (Urine, Random) 02/25/2024 8:51 AM EST 02/25/2024 Narrative [facility] 1 - 02/26/2024 2:05 PM EST Performed at: - [facility] [address] [id number] Duralumin Mechanic: Naomi Marquez MD, Phone: [phone] us Lizette Tinajero MD LAB URINE ORDERABLES Final Resul t [facility] * (ABNORMAL) Lipid Panel, Standard [id number] (02/25/2024 8:51 AM EST) Cholesterol, Total 215(H) 100 - 199 mg/dL [facility] 1 Triglycerides 264(H) 0 - 149 mg/dL [facility] 1 HDL Cholesterol 35(L) >39 mg/dL [facility] 1 VLDL Cholesterol Brien 47(H) 5 - 40 mg/dL [facility] 1 LDL Chol Calc (NIH) 133(H) 0 - 99 mg/dL [facility] 1 Blood Venous blood specimen / Unknown 02/25/2024 8:51 AM EST 02/25/2024 Narrative [facility] 1 - 02/26/2024 6:05 AM EST Performed at: 01 - [facility] [address] [id number] Duralumin Mechanic: Naomi Marquez MD, Phone: [phone] Lizette Tinajero MD LAB BLOOD ORDERABLES Final Resul t Performing Organization Address City/[facility] [address]/ZIP Co de Phone Number [facility] * (ABNORMAL) POCT glycosylated hemoglobin (Hgb A1c) (02/24/2024 3:33 PM EST) Hemoglobin A1C 8.6(A) 4.0 - 6.0 % Blood Capillary blood specimen / Unknown 02/24/2024 3:33 PM EST Lizette Tinajero MD POINT OF CARE TEST ENTER/EDIT OR DERABLES Final Result * -Hepatitis C Antibody Test (01/20/2022 12:59 PM EST) ANTI-HEPATITIS C NEGATIVE (NEG) CON [facility] Comment: Reference range: Negative This test was performed on the Path101 immunoassay system. 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
--- NOTE | 2024-12-21 07:38 | PC.NURSE ---
MRI screening form completed and sent to MRI.
--- NOTE | 2024-12-21 07:55 | PC.NURSE ---
patient off unit in MRI at this time, remains alert and oriented x4. speaking in full clear sentences
[2024-12-21 10:04] LABS: Troponin-I High Sensitivity 8.0 ng/L (<3.5-35.0)
--- NOTE | 2024-12-21 12:04 | PC.NURSE ---
ambulated to the bathroom w/ standby assistance. ambulated independently, continues to endorse dizziness however reports improvement from his initial arrival. repeat trop being obtained.
[2024-12-21 12:29] LABS: Appearance Urine Clear; Glucose Urine UA 250 mg/dL (Negative); PH 6.0 (5.0-9.0); Specific Gravity - Urine >= 1.030 (1.005-1.025)
[2024-12-21 12:38] LABS: Troponin-I High Sensitivity 16.9 ng/L (<3.5-35.0)
== END 2024-12-21 19:16 | disposition home or self-care (01) ==
PROVIDERS: Emergency Provider Emergency Medicine
DX: R42 Dizziness and giddiness (principal); R00.0 Tachycardia, unspecified; R53.1 Weakness; R06.02 Shortness of breath; I45.10 Unspecified right bundle-branch block; R94.31 Abnormal electrocardiogram [ECG] [EKG]; I10 Essential (primary) hypertension; I25.10 Atherosclerotic heart disease of native coronary artery without angina pectoris; Z03.818 Encounter for observation for suspected exposure to other biological agents ruled out; Z79.899 Other long term (current) drug therapy
CPT/HCPCS: 36415; 70450; 70496; 70498; 70551; 71045; 80053; 81003; 82947; 83735; 83880; 84443; 84484; 85025; 85379; 87637; 93005; 99284; 99285; Q9967

== ENCOUNTER → 2024-12-21 06:07 | Outpatient (BNV) | payer MEDICARE, SELFPAY | PROVIDERS: Emergency Provider Emergency Medicine; Visit Provider Internal Medicine Cardiovascular Disease | DX: I45.2 Bifascicular block (principal); R00.0 Tachycardia, unspecified; I45.10 Unspecified right bundle-branch block | CPT/HCPCS: 93010 ==

== ENCOUNTER → 2024-12-21 06:28 | Outpatient (BNV) | payer MEDICARE, SELFPAY | PROVIDERS: Emergency Provider Emergency Medicine; Visit Provider Radiology Diagnostic Radiology | DX: R90.82 White matter disease, unspecified (principal); R06.02 Shortness of breath | CPT/HCPCS: 70551; 71045 ==